=== PATIENT | male | born 1985 | race Caucasian/White ===

== ENCOUNTER 2019-04-29 08:18 | Day surgery (SDC) | payer OTHER ==
[2019-04-29] MEDS ORDERED: ROCURONIUM 50 MG/5 ML VIAL IVP ONE (08:19)
[2019-04-29] MEDS ORDERED: KETOROLAC 30 MG/ML VIAL IVP ONE (08:19)
[2019-04-29] MEDS ORDERED: fentaNYL 250 MCG/5 ML VIAL IVP ONE (08:19)
[2019-04-29] MEDS ORDERED: DEXAMETHASONE 4 MG/ML VIAL IVP ONE (08:19)
[2019-04-29] MEDS ORDERED: MIDAZOLAM 2 MG/2 ML VIAL IVP ONE (08:19)
[2019-04-29] MEDS ORDERED: PROPOFOL 200 MG/20 ML VIAL IVP ONE (08:19)
[2019-04-29] MEDS ORDERED: CEFAZOLIN SODIUM IN 0.9 % NACL 2 GM/100 ML BAG IV ONE (10:37)
[2019-04-29] MEDS ORDERED: LACTATED RINGERS 1,000 ML IV ONE ×2 (10:42→13:48)
[2019-04-29] MEDS ORDERED: BUPIVACAINE 0.25% PF 30 ML VIAL ONE (11:38)
--- NOTE | 2019-04-29 12:09 | ANESTHESIA ---
Pre-Anesthesia VS, & Labs - Diagnosis L achilles rupture - Procedure L achilles tendon repair Vital Signs: Temp Pulse Resp BP Pulse Ox 36.5 C 74 16 122/89 H 98 04/29/19 10:42 04/29/19 10:42 04/29/19 10:42 04/29/19 10:42 04/29/19 10:42 Height 5 ft 9 in Weight (kg) 86.18 kg - NPO >8 hours Home Medications and Allergies Home Medications: Ambulatory Orders Acetaminophen [Tylenol] 650 mg PO Q6H PRN 04/28/19 Acyclovir 400 mg PO 04/28/19 oxyCODONE [Roxicodone] 5 mg PO Q4-6H PRN 04/28/19 Acetaminophen [Tylenol] 650 mg PO Q6H PRN 04/28/19 Acyclovir 400 mg PO 04/28/19 oxyCODONE [Roxicodone] 5 mg PO Q4-6H PRN 04/28/19 Allergies/Adverse Reactions: Allergies Allergy/AdvReac Type Severity Reaction Status Date / Time No Known Drug Allergies Allergy Verified 04/28/19 16:07 Anes History & Medical History - Anesthetic History Anesthesia Complications: reports: No previous complications Family history of Anesthesia Complications: Denies Family history of Malignant Hyperthermia: Denies - Medical History Cardiovascular: reports: None Pulmonary: reports: None Gastrointestinal: reports: None Urinary: reports: None Musculoskeletal: reports: Other Endocrine/Autoimmune: reports: None Skin: reports: None - Surgical History Eyes Ears Nose Throat (EENT): Other Orthopedic: Other (achillesb at R) Exam General: Alert, Oriented x3, Cooperative Dental: WNL Mouth Openin Fingerbreadth Neck Mobility: Normal Mallampati classification: II Thyromental Distance: 4-6 cm Respiratory: Lungs clear, Normal breath sounds, No respiratory distress Cardiovascular: Regular rate Neurological: Normal speech Mental/Cognitive Status: Alert/Oriented X3 Cognitive Status: Within normal limits Plan Anesthesia Type: General Consent for Procedure(s) Verified and Reviewed: Yes Code Status: Attempt Resuscitation ASA classification: 2-Mild systemic disease Is this case an emergency?: No
[2019-04-29] MEDS ORDERED: BUPIVACAINE 0.25% PF 30 ML VIAL SUBQ ONE ×2 (13:00→13:50)
[2019-04-29] MEDS ORDERED: oxyCODONE 5 MG TABLET PO PRN (13:44)
[2019-04-29] MEDS ORDERED: ONDANSETRON 4 MG/2 ML VIAL IVP PRN (13:44)
--- NOTE | 2019-04-29 13:50 | OPERATIVE REPORT ---
Operative Report - Other Other Information/Narrative: Date of Surgery: 29 April 2019 Pre-Op Diagnosis: Left Achilles tendon rupture Procedure: Left Achilles tendon repair Postop Diagnosis: Same Primary Surgeon: Dom Vo Secondary Surgeon: Montrell Bowden Complications: None Tourniquet Time: 62 minutes EBL: 10 cc Implants: FiberWire suture x2, gift box technique Postoperative Protocol: Typical early weightbearing protocol, do not stretch. Indication For Surgery: 33-year-old male sustained an Achilles tendon rupture while playing football 2 weeks ago. He had previously had a rupture and repair on the contralateral side and was very pleased with it. Due to his success on the contralateral side, and after having a full discussion with me, he decided to move forward with operative management despite the risks of wound healing's and injury to the sural nerve. The risks, benefits, and alternatives were discussed. Risks include pain, bleeding, infection, damage to nearby structures, numbness, lack of symptom relief, implant complications, nonunion, need for further surgery, DVT, PE, stroke, and . Written consent was obtained. Procedure in Detail: The patient was met in the pre-operative hold area on the day of the procedure. The operative extremity was signed and questions were answered. The patient was brought to the operating room and a general anesthetic was administered. Prone position position was used and all bony prominences were padded. Standard prepping and draping was performed. A time out confirmed patient identification, laterality, procedure, allergies, antibiotics, and images. An Esmarch was used to exsanguinate the limb and the tourniquet was elevated to 250 mmHg. A medial incision was made at the edge of the tendon overlying the rupture site. Full-thickness skin flaps were created and the peritenon was evaluated. A midline peritenon incision was made. The tendon stumps were mobilized and debrided of all nonviable tissue. #2 FiberWire was then passed in a Krakw fashion 4 passes up over and then down in each tendon stump. The proximal stump was quite short and the FiberWire had to be placed more dorsally because there was a low-lying muscle belly. Each limb was then passed through the other tendon beyond the location of the Krackow sutures leaving 4 sutures across the repair site. 6 reverse half hitches alternating posts were then tied and the knot was laid down. The anterior aspect of the peritenon was then released to allow for closure dorsally. The wound was then irrigated copiously and the peritenon was closed with 0 Vicryl in a running fashion. 2-0 Vicryl was placed in the dermis and nylon in the skin. 20 cc of quarter percent Marcaine was placed about the wound and a sterile dressing was applied. A splint was then applied with the ankle in full plantarflexion. He was awakened and transferred to the recovery room.
[2019-04-29] MEDS: HYDROmorphone 1 MG/ML CARPUJECT ONE ×2 (14:27→14:39)
[2019-04-29] MEDS ORDERED: HYDROmorphone 0.5 MG/0.5 ML SYRINGE ONE (14:50)
[2019-04-29] MEDS ORDERED: oxyCODONE 5 MG TABLET ONE (15:15)
[2019-04-29 15:31] VITALS: BP 117/81
== END 2019-04-29 08:19 | disposition home or self-care (01) ==
LOC: SDS 08:18
PROVIDERS: ATTEND Orthopaedic Surgery
PROC: 0LQP0ZZ Repair Left Lower Leg Tendon, Open Approach (ICD-10-PCS; principal; 2019-04-29 12:30)
DX: S86.012A Strain of left Achilles tendon, initial encounter (principal); Z87.891 Personal history of nicotine dependence